=== PATIENT | male | born 1955 | race Caucasian/White ===

== ENCOUNTER 2016-10-31 09:27 | Observation (INO) | payer BC ==
[2016-10-31] MEDS ORDERED: FAMOTIDINE 20 MG TAB PO ONE (09:30)
[2016-10-31] MEDS ORDERED: diphenhydrAMINE 25 MG CAP PO ONE ×2 (09:30→10:03)
[2016-10-31] MEDS ORDERED: ASPIRIN EC 325 MG TAB PO ONE ×2 (09:30→10:03)
[2016-10-31] MEDS ORDERED: DIAZEPAM 5 MG TAB PO ONE (09:30)
[2016-10-31] MEDS ORDERED: NS 1,000 ML IV ONE (09:30)
--- NOTE | 2016-10-31 10:02 | CPEKG ---
Heart Rate: 44 RR Interval: 1364 P-R Interval: 216 QRSD Interval: 104 QT Interval: 476 QTC Interval: 408 P Surveyor: 47 QRS Surveyor: -27 T Wave Surveyor: 17 EKG Severity - OTHERWISE NORMAL ECG - EKG Impression: SINUS BRADYCARDIA EKG Impression: LEFT VENTRICULAR HYPERTROPHY EKG Impression: LEFT AXIS DEVIATION EKG Impression: FIRST DEGREE AV BLOCK Electronically Signed By: Mckinley Nugent 31-Oct-2016 18:39:12
[2016-10-31] MEDS ORDERED: DIAZEPAM 5 MG TAB ONE (10:03)
[2016-10-31] MEDS ORDERED: FAMOTIDINE 20 MG TAB ONE (10:03)
[2016-10-31 10:25] LABS: % IMMATURE GRANULYOCYTES 0.5 % (0.0-1.1); ABSOLUTE IMMATURE GRANULOCYTES 0.03 10^3/uL (0.00-0.10); ADD DIFF? NO; ADD MORPH? NO; ADD SCAN? NO; ATYPICAL LYMPHOCYTE FLAG 10 (0-99); FRAGMENT RBC FLAG 0 (0-99); HEMATOCRIT 47.1 % (40.0-51.0); HEMOGLOBIN 15.8 g/dL (13.7-17.5); LEFT SHIFT FLG 0 (0-99); LIPEMIA HEMOLYSIS FLAG 80 (0-99); MEAN CELL HEMOGLOBIN 28.7 pg (27.9-34.1); MEAN CELL HEMOGLOBIN CONCENTR. 33.5 g/dL (32.4-36.7); MEAN CELL VOLUME 85.6 fL (81.5-99.8); MEAN PLATELET VOLUME 11.9 fL (8.7-11.7); PLATELET CLUMPS FLAG 0 (0-99); PLATELET COUNT 210 10^3/uL (150-400); RED CELL DISTRIBUTION WIDTH 12.6 % (11.5-15.2)
[2016-10-31 10:40] LABS: INR 1.02 (0.83-1.16); PROTIME(PATIENT) 13.3 SEC (12.0-15.0)
[2016-10-31 10:42] LABS: ANION GAP 10 mEq/L (8-16); CALCIUM 9.3 mg/dL (8.5-10.4); CARBON DIOXIDE 26 mEq/l (22-31); CHLORIDE 106 mEq/L (97-110); CHOLESTEROL 197 mg/dL (140-220); CHOLESTEROL/HDL RATIO 5.97 RATIO (1.00-4.97); CREATININE 1.1 mg/dL (0.7-1.3); GLOMERULAR FILTRATION RATE > 60; GLUCOSE 90 mg/dL (70-100); HIGH DENSITY LIPOPROTEIN 33 mg/dL (40-65); LDL/HDL RATIO 4.27 RATIO (1.00-3.64); LOW DENSITY LIPOPROTEIN 141 mg/dL (80-100); MAGNESIUM 2.1 mg/dL (1.6-2.3); NON-HIGH DENSITY LIPOPROTEIN 164 mg/dL (90-129); POTASSIUM 4.4 mEq/L (3.5-5.2); SODIUM 142 mEq/L (134-144); TRIGLYCERIDE 117 mg/dL (40-150); VERY LOW DENSITY LIPOPROTEINS 23 mg/dL (8-25)
[2016-10-31] MEDS ORDERED: LIDOCAINE 1% 30 ML SDV ONE (10:43)
[2016-10-31] MEDS ORDERED: IOPAMIDOL (ISOVUE-370) 150 ML BTL IV ONE ×2 (10:43→11:39)
[2016-10-31] MEDS ORDERED: VERAPAMIL 5 MG/2 ML VIAL ONE (10:43)
[2016-10-31] MEDS ORDERED: fentaNYL 100 MCG/2 ML INJ ONE ×2 (10:43→11:55)
[2016-10-31] MEDS ORDERED: HEPARIN 10,000 UNIT/10 ML MDV ONE (10:43)
[2016-10-31] MEDS ORDERED: MIDAZOLAM 2 MG/2 ML VIAL ONE ×2 (10:43→11:55)
[2016-10-31] MEDS ORDERED: NITROGLYCERIN 1,500 MCG/15 ML VIAL MISC ONE (11:39)
[2016-10-31] MEDS ORDERED: PRASUGREL HCL 10 MG TAB ONE (12:36)
[2016-10-31] MEDS ORDERED: ONDANSETRON DISINTEGRATING 4 MG TAB PO PRN (12:58)
[2016-10-31] MEDS ORDERED: PRASUGREL HCL 10 MG TAB PO ONE (12:58)
[2016-10-31] MEDS ORDERED: NITROGLYCERIN 0.4 MG BTL SL PRN (12:58)
[2016-10-31] MEDS ORDERED: LORazepam 2 MG/ML INJ IVP PRN (12:58)
[2016-10-31] MEDS ORDERED: ATROPINE SULFATE 1 MG/10 ML SYR IVP PRN (12:58)
[2016-10-31] MEDS ORDERED: ONDANSETRON 4 MG/2 ML VIAL IVP PRN (12:58)
[2016-10-31] MEDS ORDERED: TEMAZEPAM 15 MG CAP PO PRN (12:58)
[2016-10-31] MEDS ORDERED: ACETAMINOPHEN 325 MG TAB PO PRN (12:58)
--- NOTE | 2016-10-31 12:58 | PDDXCAT ---
Diagnostic Cath Note - . Date: 10/31/16 Intervention: drug eluting stent implantation (see below) *Procedure 1. selective coronary angiography 2. left heart catheterization 3. left ventriculogram 4. drug-eluting stent implantation x 2 in the proximal obtuse marginal 1 (OM1) Indication: CCS Class III angina, abnormal EKG, hyperlipidemia. Access: Right radial artery (a plethysmography trace assisted German's Test was used to document dual artery supply to the hand and index finger prior to access ). *Materials Left Heart Cath size: 5F, 6F Left Heart Cath materials: JL3.5, JR4.0, pigtail, 6F EBU Launcher *Findings-Selective Coronary Angiography LM: The left main is ~8 mm in size and bifurcates into an LAD and circumflex system. There is no significant disease. LAD: The proximal LAD is ~3.25 mm in size. There are luminal irregularities consistent with atherosclerosis without evidence of flow-limiting disease and NADIYA III flow throughout. LCX: There is a 99% obstruction of a 2.5 mm obtuse marginal vessel with NADIYA II flow. This lesion required stent implantation as described below. RCA: The right coronary artery is ~4.5 mm in size and is co-dominant with the left circumflex. No flow-limiting disease is identified with NADIYA III flow. *Findings-Left Heart Catheterization EDP: 18 mmHg LVEF: 65% AO: 119/67/93 mmHg LVG: There is normal LV systolic function with normal ejection fraction without segmental wall motion abnormalities. The visualized portion of the thoracic aorta appears to be within normal limits in size without evidence of jin dissection or aneurysm. *Intervention A 6 [place] Obviousidea XBC4 guiding catheter was used for guide catheter support. A 0.014" Intuition Guide Wire was advanced across the proximal OM1 under direct fluoroscopic and angiographic guidance. A 1.5 x 12 mm Emerge balloon was used to pre-dilate proximal OM1 lesion under a maximum of 14 roderick of pressure. A 2.5 x 16 mm Synergy drug eluting was exchanged for the balloon and deployed under 16 roderick of pressure. S/p stent implantation, there was ~50% residual stenosis in the proximal vessel. We exchanged for a new Intuition wire and re- inserted the stent balloon. The proximal and distal portion of the lesion was post-dilated under a maximum of 19 roderick of pressure. A 2.5 x 8 mm Synergy drug eluting stent was then placed just proximal to initial stent implantation and inflated under a maximum of 17 roderick of pressure. Status post stent implantation there was 0% residual stenosis with NADIYA III flow throughout the OM1. *Summary Complications: None Estimated blood loss: <50ml Closure method: TR Band Assessment/Conclusion: 1. [place] vessel coronary artery disease including flow-limiting obstruction of the first obtuse marginal (99% plaque area stenosis with NADIYA II flow pre-stent implantation) that was repaired with drug-eluting stent implantation x 2. Status post stent implantation there were excellent results angiographically with 0% residual stenosis and NADIYA III flow. There was also moderate coronary artery disease identified in the LAD and RCA that did not require stent implantation. The patient will need to be on dual antiplatelet therapy for at least 1 year s/ p stent implantation. His dyslipidemia should be treated with statin therapy to achieve a non-HDL cholesterol <100 mg/dL. 2. Normal LV systolic function without regional wall motion abnormalities and normal ejection fraction estimated to be 65%.
[2016-10-31] MEDS ORDERED: NS 1,000 ML IV SCH (13:00)
--- NOTE | 2016-10-31 13:01 | CPEKG ---
Heart Rate: 39 RR Interval: 1538 P-R Interval: 244 QRSD Interval: 102 QT Interval: 524 QTC Interval: 423 P [place]: 54 QRS [place]: -22 T Wave [place]: 66 EKG Severity - ABNORMAL ECG - EKG Impression: SINUS BRADYCARDIA EKG Impression: FIRST DEGREE AV BLOCK EKG Impression: BORDERLINE LEFT AXIS DEVIATION EKG Impression: NONSPECIFIC T ABNORMALITIES, LATERAL LEADS Electronically Signed By: Mckinley Nugent 31-Oct-2016 18:38:06
--- NOTE | 2016-10-31 15:32 | CPEKG ---
Heart Rate: 41 RR Interval: 1463 P-R Interval: 224 QRSD Interval: 104 QT Interval: 484 QTC Interval: 400 P [place]: 57 QRS [place]: -14 T Wave [place]: 133 EKG Severity - ABNORMAL ECG - EKG Impression: SINUS BRADYCARDIA EKG Impression: FIRST DEGREE AV BLOCK Electronically Signed By: Mckinley Nugent 31-Oct-2016 18:37:43
[2016-11-01 04:37] LABS: % IMMATURE GRANULYOCYTES 0.5 % (0.0-1.1); ABSOLUTE IMMATURE GRANULOCYTES 0.04 10^3/uL (0.00-0.10); ADD DIFF? NO; ADD MORPH? NO; ADD SCAN? NO; ATYPICAL LYMPHOCYTE FLAG 0 (0-99); FRAGMENT RBC FLAG 0 (0-99); HEMATOCRIT 45.3 % (40.0-51.0); HEMOGLOBIN 15.4 g/dL (13.7-17.5); LEFT SHIFT FLG 0 (0-99); LIPEMIA HEMOLYSIS FLAG 90 (0-99); MEAN CELL HEMOGLOBIN 28.3 pg (27.9-34.1); MEAN CELL VOLUME 83.3 fL (81.5-99.8); MEAN PLATELET VOLUME 11.5 fL (8.7-11.7); PLATELET CLUMPS FLAG 0 (0-99); PLATELET COUNT 197 10^3/uL (150-400); RED BLOOD CELL COUNT 5.44 10^6/uL (4.40-6.38); RED CELL DISTRIBUTION WIDTH 12.6 % (11.5-15.2)
[2016-11-01 04:48] LABS: POTASSIUM 4.6 mEq/L (3.5-5.2)
[2016-11-01 04:49] LABS: ANION GAP 10 mEq/L (8-16); ASPARTATE AMINOTRANSFERASE 19 IU/L (17-59); BILIRUBIN,TOTAL 0.7 mg/dL (0.1-1.4); CALCIUM 9.3 mg/dL (8.5-10.4); CARBON DIOXIDE 25 mEq/l (22-31); CHLORIDE 105 mEq/L (97-110); CREATININE 1.1 mg/dL (0.7-1.3); GLOMERULAR FILTRATION RATE > 60; GLUCOSE 97 mg/dL (70-100); LACTATE DEHYDROGENASE 345 IU/L (313-618); MAGNESIUM 2.1 mg/dL (1.6-2.3); SODIUM 140 mEq/L (134-144)
[2016-11-01 07:24] VITALS: BP 115/74; PULSE 45; RESP 18; TEMP 98; O2SAT 96
--- NOTE | 2016-11-01 08:54 | CPEKG ---
Heart Rate: 44 RR Interval: 1364 P-R Interval: 200 QRSD Interval: 104 QT Interval: 468 QTC Interval: 401 P [place]: 64 QRS [place]: -41 T Wave [place]: 7 EKG Severity - ABNORMAL ECG - EKG Impression: SINUS BRADYCARDIA EKG Impression: LEFT AXIS DEVIATION EKG Impression: NONSPECIFIC REPOL ABNORMALITY, LATERAL LEADS Electronically Signed By: Mckinley Torres 02-Nov-2016 10:43:33
[2016-11-01] MEDS ORDERED: PRASUGREL HCL 10 MG TAB PO SCH (09:00)
[2016-11-01] MEDS ORDERED: ASPIRIN EC 325 MG TAB PO SCH (09:00)
--- NOTE | 2016-11-01 16:05 | GDS ---
[f rep st] DISCHARGE SUMMARY ADMISSION DIAGNOSES: 1. Chest pressure. 2. Abnormal electrocardiogram. 3. Dyslipidemia. 4. Obstructive sleep apnea. DISCHARGE DIAGNOSES: 1. Coronary artery disease. 2. Status post percutaneous coronary intervention to 1st OM, placing 2 JUMA (2.5 x 16 and 2.5 x 8 Sy nergy stents). 3. Dyslipidemia. 4. Obstructive sleep apnea. PROCEDURES DONE: 1. Catheterization. 2. Electrocardiogram. 3. Diagnostic coronary catheterization. 4. Percutaneous coronary intervention to 1st OM with 2 JUMA implantation. BRIEF HISTORY: The patient is a 60-year-old male who was recently seen in our office on October 28 ent by his PCP, Dr. Urias, for evaluation for ongoing chest pressure. The patient reporting exe rtional chest pressure, usually happening only when he was running or biking, usually associated wit h heart rates of greater than 120 beats per minute. His electrocardiogram at that time did show sin us rhythm with first-degree AV block, ST depression, and T-wave inversion in lateral leads, and left anterior fascicular block. It is felt that due to his symptoms, cardiac risk factors, it was best for the patient to undergo coronary catheterization for further evaluation. The patient was admitted to the CVC, prepped for procedure, and taken to the cardiac catheterization lab. There, Dr. Ocampo performed from the right radial approach. Diagnostic heart catheterization , showing left main with no significant disease. LAD with luminal irregularities without flow limit ation disease. RCA with no flow-limiting disease. Circumflex with the large 1st OM with a 99% narr owing, and a NADIYA 2 flow. At that point, LV gram was done. Ejection fraction was estimated at 65%. EDP was 18 mmHg. No wall motion abnormalities were noted. At that point, Dr. Ocampo performed de cided on doing percutaneous coronary intervention to the 99% stenosis in the large size 1st OM branc h, in which he successfully implanted 2 JUMA stents with no complications. The patient was transferred back to the CVC, and ultimately to the PCU telemetry floor for overnight observation. There, he reports he has been chest pain-free. Denies any shortness of breath, palpi tations, orthopnea, lightheadedness, near-syncope, or syncopal events. On continuous cardiac monito r, he has remained in sinus rhythm/sinus bradycardia, with no malignant arrhythmias, pauses, or ecto pic beats noted. PHYSICAL EXAMINATION: GENERAL APPEARANCE: Today, medium built, well-groomed, male. He i s alert and oriented to person, place, time, and situation. Appears to be under no acute distress. VITAL SIGNS: Blood pressure 115/74, heart rate of 45, sinus alejandro on the monitor, respirations are 18, saturating 96% on room air, temperature 36.7 degrees Celsius. HEENT: Head is normocephalic. Lips and tongue are pink and moist with no signs of cyanosis. Conjunctivae pink. NECK: Trachea is midline, +2 carotid pulses bilateral. No auscultated bruits. No jugular vein distention. RESPIRA TORY: Lungs clear to auscultation. No rhonchi, rales or wheezes. No accessory muscle use. No int ercostal muscle retraction noted. CARDIAC: Regular rate, regular rhythm. S1, S2. No S3, S4, gall op, rubs, or murmur noted. ABDOMEN: Soft, nontender. Bowel sounds x4 quadrants. No organomegaly. No palpable masses. SKIN: [place], warm, dry. No cyanosis. No clubbing. No peripheral edema. VA SCULAR: +2 radials bilateral, +2 carotids bilateral, +2 posterior tibial pulses bilateral. CATHETE R INSERTION SITE: Right wrist with no redness, swelling, or drainage. Mild ecchymosis around the i nsertion site, size of a quarter. No hematoma. No bleeding. CMS checks within normal limits to ri ght hand. CRANIAL NERVES: 10 through 12 grossly intact. LABORATORIES: Laboratory studies drawn today show WBC 7.67, hemoglobin of 15.4, hematocrit of 45.3, platelet count 197, sodium 140, potassium 4.6, chloride 105, CO2 25, BUN 19, creatinine 1.1, glucos e 97, calcium 9.3, phosphorus 3.9, magnesium 2.1, total bilirubin 0.7, AST 19, albumin 4.0. On admi ssion, he had a fasting lipid panel showing total triglycerides of 117, total cholesterol 197, LDL 1 41, HDL 33. STUDIES: Diagnostic heart catheterization and intervention as mentioned above. Electrocardiogram d one this morning shows sinus bradycardia, left axis deviation, nonspecific T-wave abnormalities in l ateral leads. DISCHARGE DISPOSITION: The patient will be discharged home in stable condition. He is under activi ty restrictions of no strenuous activity. Not lifting more than 10 pounds for the next week. No st renuous activity for the next 2 weeks. DISCHARGE MEDICATIONS: Please see discharge med reconciliation sheet. Note, the patient has been s tarted on anti-platelet therapy of full-strength aspirin of 325 mg p.o. daily, Effient 10 mg p.o. da jassi, and atorvastatin 80 mg p.o. at bedtime. DISCHARGE INSTRUCTIONS: He will need a fasting lipid and liver panel in 6-8 weeks. The patient has not been started on beta-blockers or ANAIS inhibitor due to lower blood pressures, and history of kno wn bradycardia. Post PCI discharge instructions went over with the patient and his , including monitoring for si gns of infection, activity restrictions, bleeding precautions, and medication compliance, especially the importance of dual anti-platelet therapy with the recent implantation of 2 JUMA stents into his obtuse marginal. At the time of discharge, the patient and his verbalized understanding, and h ave no further questions. They have been told that if any problems or concerns come up post dischar ge, they are to call our office or return to the hospital. The patient has a followup appointment a week from today with Dr. Ocampo at our [facility] office. Total time spent on discharge greater than 30 minutes. /[id number]/MODL
[2016-11-01] MEDS ORDERED: ATORVASTATIN CALCIUM 40 MG TAB PO SCH (21:00)
== END 2016-11-01 13:23 | disposition home or self-care (01) ==
LOC: FCATH 09:27 → F2W 12:58
PROVIDERS: ADMIT Internal Medicine Cardiovascular Disease; ATTEND Internal Medicine Cardiovascular Disease
DX: I25.10 Atherosclerotic heart disease of native coronary artery without angina pectoris (principal); G47.33 Obstructive sleep apnea (adult) (pediatric); E78.5 Hyperlipidemia, unspecified
CPT/HCPCS: 92928; 93005; 93458; C1725; C1769; C1887; G0378; C1874; C9600; J1644; J2250; J3010; Q9967

== ENCOUNTER 2016-11-03 18:10 | Emergency (ER) | payer BC ==
[2016-11-03] MEDS ORDERED: OXYMETAZOLINE 30 ML NASAL SPRAY ONE (18:39)
[2016-11-03 18:45] VITALS: TEMP 97.9
--- NOTE | 2016-11-03 18:47 | EDPHY ---
H & P Time Seen by Provider: 11/03/16 18:20 HPI/ROS: CHIEF COMPLAINT: Nosebleed HISTORY OF PRESENT ILLNESS: The patient is a 60-year-old male who presents emergency department with nose bleed. He underwent cardiac catheterization and stent placement 3 days ago. He is placed on Effient. Today he blew his nose any developed bleeding. He felt like was coming from both nostrils. He denies lightheadedness or dizziness. He has no chest pain or shortness of breath. No other bruising. No joint aches. No headache. REVIEW OF SYSTEMS: My complete review of systems is negative except as mentioned in the HPI. Past Medical/Surgical History: Includes ACS, dyslipidemia, JANNET Smoking Status: Never smoked Physical Exam: Vitals noted General Appearance: [Alert and no distress]. Head: [Pupils equal. Normal]. Patient has no active bleeding with nasal clamp was removed. (nasal clamp was placed in triage) there is no visible site of bleeding with the otoscope. Respiratory: [No respiratory distress]. Cardiac: [regular rate and rhythm]. Extremities: [Full range of motion, normal appearing]. No joint swelling Skin: No rashes or lesions. No bruising. Neuro: [Alert. Normal mood and affect]. Constitutional: Initial Vital Signs Heart Rate 55 L 11/03/16 18:12 Respiratory Rate 19 11/03/16 18:12 Blood Pressure 153/93 H 11/03/16 18:12 O2 Sat (%) 95 11/03/16 18:12 O2 Delivery Mode Room Air Allergies/Adverse Reactions: No Known Allergies Allergy (Unverified 10/31/16 10:06) Home Medications: Medication Instructions Recorded Fluticasone Nasal [Flonase Nasal 1 sprays NASAL DAILY 10/31/16 [place]] Acetaminophen [Tylenol 325mg (*)] 650 mg PO Q4HRS PRN #0 tab 11/01/16 Aspirin EC [Aspirin EC 325 mg (*)] 325 mg PO DAILY #0 tab 11/01/16 Atorvastatin Calcium [Lipitor 40 80 mg PO HS #30 tab 11/01/16 mg (*)] Nitroglycerin [Nitrostat] 0.4 mg SL Q5M PRN #1 btl 11/01/16 Prasugrel HCl [Effient 10mg (*)] 10 mg PO DAILY #30 tab 11/01/16 Medical Decision Making ED Course/Re-evaluation: In the emergency department I discussed causes of nose bleed. Afrin was applied and nasal clamp was replaced. There is no active bleeding. I will recheck the patient in 15 minutes to ensure there is no active bleeding. 1705: I rechecked the patient. He had no active bleeding. I discussed plan with the patient. I answered all his questions. He was given warnings prior to leaving. He has an appointment with Dr. Ocampo on Friday. He is aware that if he has persistent bleeding he will return to the emergency department. Differential Diagnosis: My differential includes but is not limited to coagulopathy, anterior nasal bleed, posterior nasal bleed, mass, malignancy Departure - Departure Disposition: Home, Routine, Self-Care Clinical Impression: Acute anterior epistaxis Condition: Good Instructions: Nosebleed (ED) Additional Instructions: If he developed a nosebleed spray Afrin into both nostrils. Apply the nasal clamp. Keep in place for 20 minutes. If the bleeding continues return to the emergency department. If you developed joint pain, bruising, headache or any other concerns return to the emergency department. Referrals: Danny Lopez MD [Primary Care Provider] - 5-7 days, call for appt.
[2016-11-03 19:38] VITALS: BP 119/105; PULSE 72; RESP 16; O2SAT 96
== END 2016-11-03 19:38 | disposition home or self-care (01) ==
DX: R04.0 Epistaxis (principal); Z79.82 Long term (current) use of aspirin

== ENCOUNTER 2017-03-10 07:30 | Emergency (ER) | payer BC ==
[2017-03-10 07:36] VITALS: RESP 16
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
[2017-03-10] MEDS ORDERED: CEPHALEXIN 500 MG CAP PO ONE (08:00)
[2017-03-10] MEDS ORDERED: DOXYCYCLINE HYCLATE 100 MG CAP/TAB PO ONE (08:01)
[2017-03-10 09:44] VITALS: BP 138/88; PULSE 45; TEMP 97.9; O2SAT 94
== END 2017-03-10 09:43 | disposition home or self-care (01) ==
DX: S80.11XA Contusion of right lower leg, initial encounter (principal); L03.115 Cellulitis of right lower limb; I25.10 Atherosclerotic heart disease of native coronary artery without angina pectoris; Z95.5 Presence of coronary angioplasty implant and graft; Z79.82 Long term (current) use of aspirin; W01.198A Fall on same level from slipping, tripping and stumbling with subsequent striking against other object, initial encounter; Y92.89 Other specified places as the place of occurrence of the external cause; Y99.8 Other external cause status